=== PATIENT | female | born 1960 | race Caucasian/White ===

== ENCOUNTER 2017-10-03 08:00 | Outpatient (CLI) | payer OTHER | END 2017-10-03 08:01 | disposition home or self-care (01) | LOC: LAB.WCP 08:00 | PROVIDERS: ATTEND Family Medicine | DX: N39.0 Urinary tract infection, site not specified (principal) | CPT/HCPCS: 87086 ==

== ENCOUNTER 2018-08-23 08:00 | Outpatient (CLI) | payer OTHER | END 2018-08-23 23:59 | disposition home or self-care (01) | LOC: LAB.WCP 08:00 | PROVIDERS: ATTEND Physician Assistant | DX: N39.0 Urinary tract infection, site not specified (principal) | CPT/HCPCS: 87086 ==

== ENCOUNTER 2019-06-26 07:58 | Day surgery (SDC) | payer OTHER ==
[2019-06-26] MEDS ORDERED: LACTATED RINGERS 1,000 ML IV ONE (08:30)
[2019-06-26] MEDS ORDERED: fentaNYL 250 MCG/5 ML VIAL IVP ONE (10:03)
[2019-06-26] MEDS ORDERED: MIDAZOLAM 2 MG/2 ML VIAL IVP ONE (10:03)
[2019-06-26 11:10] VITALS: BP 98/60
== END 2019-06-26 07:59 | disposition home or self-care (01) ==
LOC: SDS 07:58
PROVIDERS: ATTEND Surgery
PROC: 0DBN8ZZ Excision of Sigmoid Colon, Via Natural or Artificial Opening Endoscopic (ICD-10-PCS; 2019-06-26)
PROC: 0DBH8ZZ Excision of Cecum, Via Natural or Artificial Opening Endoscopic (ICD-10-PCS; principal; 2019-06-26 09:15)
DX: Z12.11 Encounter for screening for malignant neoplasm of colon (principal); D12.0 Benign neoplasm of cecum; D12.5 Benign neoplasm of sigmoid colon; K64.8 Other hemorrhoids; Z85.3 Personal history of malignant neoplasm of breast
CPT/HCPCS: 45380; 45385; J3010; J7120